=== PATIENT | female | born 1980 | race Two or more races ===

== ENCOUNTER 2018-01-12 01:40 | Emergency (ER) | payer OTHER ==
[2018-01-12 02:12] LABS: URINE HCG POC HCG NEGATIVE (Negative)
[2018-01-12 02:15] LABS: BILIRUBIN,URINE NEGATIVE (NEG); CLARITY,URINE CLEAR; COLOR,URINE YELLOW; GLUCOSE,URINE NEGATIVE (NEG); NITRITE,URINE NEGATIVE (NEG); PROTEIN,URINE NEGATIVE (NEG-TRACE); UROBILINOGEN,URINE 0.2 mg/dL (0.2 mg/dL)
[2018-01-12 02:25] LABS: BACTERIA,URINE MODERATE /HPF (0-FEW); RBC,URINE OCC /HPF (0-2); SQUAMOUS EPITHELIAL CELL,UR MOD /LPF; WBC,URINE TNTC /HPF (0-4)
[2018-01-12] MEDS: cefTRIAXone IM 1 GM VIAL IM ×2 (02:58→03:00)
[2018-01-12] MEDS: PHENAZOPYRIDINE 200 MG TABLET. PO (02:59)
== END 2018-01-12 03:11 | disposition home or self-care (01) ==
LOC: ER 01:40
DX: N39.0 Urinary tract infection, site not specified (principal)
CPT/HCPCS: 81001; 81025; 87086; 96372; 99284-25; J0696